=== PATIENT | female | born 1990 | race Two or more races ===

== ENCOUNTER 2018-04-25 12:07 | Emergency (ER) | payer OTHER ==
[~2018-04-25] VITALS: Ht 167.6 cm; Wt 81.0 kg
[~2018-04-25 12:07] MED LIST: BACTRIM DS1 TAB PO; IMODIUM2 MG PO
[2018-04-25] MEDS ORDERED: SINGULAIR10 MG PO (12:29)
[2018-04-25] MEDS ORDERED: ZPAK PO (12:30)
[2018-04-25] MEDS ORDERED: PREDNISONE1 MG PO (12:30)
[2018-04-25 13:24] LABS: HEMATOCRIT 45.4 % (37.0-47.0); HEMOGLOBIN 15.4 g/dl (12.0-16.0); IMMATURE GRANULOCYTES 1.2 % (0.0-5.0); MEAN CORPUSCULAR HGB 30.9 pG CALC (26.0-32.0); MEAN CORPUSCULAR HGB CONC 33.9 g/L CALC (32.0-36.0); NEUT# 9.55 thou/uL (2.00-7.15); RED BLOOD COUNT 4.99 mill/uL (4.20-5.60); RED CELL DISTRI WIDTH 12.2 % (11.5-15.5)
[2018-04-25 13:35] LABS: URINE BILIRUBIN - DIPSTICK NEGATIVE (NEGATIVE); URINE BLOOD DIPSTICK NEGATIVE (NEGATIVE); URINE CLARITY SL CLOUDY; URINE COLOR YELLOW; URINE GLUCOSE - DIPSTICK NEGATIVE (NEGATIVE); URINE KETONE NEGATIVE (NEGATIVE); URINE LEUK ESTERASE NEGATIVE (NEGATIVE); URINE NITRITE - DIPSTICK NEGATIVE (Negative); URINE PH 7.5 (4.5-8.0); URINE PROTEIN - DIPSTICK NEGATIVE (NEG-TRACE); URINE UROBILINOGEN - DIPSTICK 0.2 E.U./dL (0.2)
[2018-04-25 13:45] LABS: ALBUMIN 4.6 g/dL (3.2-5.0); ALKALINE PHOSPHATASE 71 u/l (38-126); ANION GAP 16 (6-22 (CALC)); BILIRUBIN, TOTAL 0.6 mg/dL (0.0-1.4); BUN 12 mg/dL (7-17); BUN/CREATININE RATIO 17 (12-20 (CALC)); CARBON DIOXIDE 26 mmol/l (22-30); CHLORIDE 103 mmol/l (95-108); CREATININE 0.7 mg/dL (0.5-1.0); GFR > 60 ML/MIN (>=60 (CALC)); GFR FOR AFR.AMER. > 60 ML/MIN (>=60 (CALC)); SGOT/AST 24 u/l (14-36); SGPT/ALT 36 u/l (9-52); SODIUM 141 mmol/l (137-146); TOTAL PROTEIN 7.8 g/dL (6.3-8.2)
[2018-04-25] MEDS ORDERED: CLARITIN-D1 TA2 PO (14:17)
[2018-04-25 14:57] VITALS: BP 133/83
== END 2018-04-25 15:05 | disposition left against medical advice (07) | DRG 204 ==
LOC: ED 12:07 → ED-I 13:32 → ED 13:32 → ED-I 14:00 → ED 15:05
DX: R06.02 Shortness of breath (principal); R05 Cough; Z20.1 Contact with and (suspected) exposure to tuberculosis; Z91.19 Patient's noncompliance with other medical treatment and regimen